=== PATIENT | female | born 1970 | race Caucasian/White ===

== ENCOUNTER 2016-10-08 22:07 | Emergency (ER) | payer BC ==
[~2016-10-08] VITALS: Ht 154.9 cm; Wt 73.8 kg
[~2016-10-08 22:07] MED LIST: MOTRIN PO; PERC5TAB12 PO
[2016-10-08 22:14] VITALS: BP 160/116; PULSE 89; RESP 16; TEMP 98.8; O2SAT 99
[2016-10-08] MEDS ORDERED: BP MEDICATION PO (22:23)
[2016-10-08 23:07] VITALS: BP 167/107
[2016-10-08] MEDS ORDERED: ZITHTAB PO (23:09)
--- NOTE | 2016-10-08 23:09 | PD ---
HPI Chief Complaint: ENT Complaint Time Seen by Provider: 23:03 Travel History International Travel<30 days: No Contact w/Intl Traveler<30days: No Traveled to known affect area: No History of Present Illness HPI 46-year-old female presents to the emergency department by private transportation for complaint of possible sinus infection. Patient has had sinus pressure with drainage, sore throat, mild epistaxis, and frontal headache 2 days. Patient states she's had sinus infections in the past. Patient also has high blood pressure but is been taking her blood pressure medication as prescribed. Patient is also been using [id number] NyQuil and Claritin-D however. Patient is not aware that these medications may have an adverse elevating effect on her blood pressure. Patient denies any sudden onset thunderclap or worst ever headache no visual disturbance no confusion no nausea no vomiting no neck pain no chest pain no palpitations no report of upper or lower extremity numbness tingling weakness or ataxia gait. Patient denies other concerns or complaints. Patient rates sinus pressure and throat pain 8/ 10 in intensity. Patient reports that she has recently had her pressure medication changed from a high dose beta salazar to a new medication that she takes as a 5 mg tablet but she does not know the name of the medication. PFSH Past Medical History Narrative Medical Hypertension, sinusitis, ovarian cysts, kidney stone, left ureteral stent, tubal ligation; occasional alcohol use no tobacco use; nursing notes reviewed Hx Anticoagulant Therapy: Yes (81MG ASA) Blood Disorders: No Heart Rhythm Problems: No Cancer: No Cardiovascular Problems: No High Cholesterol: No Chest Pain: No Congestive Heart Failure: No Diabetes: No Diminished Hearing: No Endocrine: No Genitourinary: Yes (KIDNEY STONES) Hepatitis: No Hiatal Hernia: No Hypertension: Yes Immune Disorder: No Kidney Stones: Yes Musculoskeletal: No Neurologic: No Psychiatric: No Reproductive: No Respiratory: No Immunizations Current: Yes Thyroid Disease: No Tetanus Vaccination: Unknown Influenza Vaccination: No ?: Not LMP: 10/01/16 : 3 Para: 3 Ovarian Cysts: Yes Tubal Ligation: Yes Past Surgical History AICD: No Body Medical Devices: l side stent Genitourinary Surgery: Yes (l side stent) Joint Replacement: No Pacemaker: No Other Surgery: Yes (OVARIAN CYSTE; TUBES TIED) Social History Alcohol Use: Yes (OCC) Tobacco Use: No Substance Use: No Allergies-Medications (Allergen,Severity, Reaction): Coded Allergies: No Known Allergies (Unverified , 10/08/16) Reported Meds & Prescriptions Reported Meds & Active Scripts Active Clonidine (Clonidine HCl) 0.1 Mg Tab 0.1 Mg PO Q12HR PRN Zithromax Z-Cheikh (Azithromycin) 250 Mg Dspk 250 Mg PO DIRECTED 500 MG (2 tabs) day 1, then 1 tab days 2-5. Reported [Bp Medication] 5 Mg PO DAILY Review of Systems Except as stated in HPI: all other systems reviewed are Neg General / Constitutional: No: Fever, Chills Eyes: No: Visual changes HENT: Positive: Headaches, Sore Throat, Nosebleed, Earache, No: Neck Stiffness Cardiovascular: No: Chest Pain or Discomfort Respiratory: No: Cough, Shortness of Breath, Wheezing (scant) Gastrointestinal: No: Nausea, Vomiting, Abdominal Pain Genitourinary: No: Flank Pain Musculoskeletal: No: Myalgias, Arthralgias Skin: No Rash Neurologic: No: Weakness Psychiatric: No: Anxiety Endocrine: No: Polyuria Hematologic/Lymphatic: No: Lymph Node Enlargement Physical Exam Narrative GENERAL: Well-developed well-nourished female in no acute distress no respiratory distress SKIN: Warm and dry. HEAD: Normocephalic. EYES: No scleral icterus. No injection or drainage. ENT: Mucous members moist airway is patent sinuses tender to percussion no active epistaxis or posterior pharyngeal blood sugar: Tympanic membranes no redness dullness loss of landmarks or perforation NECK: Supple, trachea midline. No JVD or lymphadenopathy. No meningismus no nuchal rigidity. CARDIOVASCULAR: Regular rate and rhythm without murmurs, gallops, or rubs. RESPIRATORY: Breath sounds equal bilaterally. No accessory muscle use. GASTROINTESTINAL: Abdomen soft, non-tender, nondistended. MUSCULOSKELETAL: No cyanosis, or edema. Radial and dorsalis pedis pulses 2+ to palpation. BACK: Nontender without obvious deformity. No CVA tenderness. Data Data Last Documented VS Vital Signs Date Time Temp Pulse Resp B/P Pulse Ox O2 Delivery O2 Flow Rate FiO2 10/09/16 00:30 136/96 10/09/16 00:16 18 10/08/16 22:14 98.8 89 99 Orders Acetaminophen (Tylenol) (10/08/16 23:15) Clonidine (Catapres) (10/08/16 23:45) [facility] Medical Decision Making Medical Screen Exam Complete: Yes Emergency Medical Condition: Yes Medical Record Reviewed: Yes Differential Diagnosis Viral syndrome, rhinosinusitis, acute bacterial sinusitis, pharyngitis, poorly controlled hypertension, adverse medication reaction Narrative Course Patient with recurrent episodes of sinusitis with recurrent similar symptoms noted to have hypertension most likely related to adverse response to over-the- counter NyQuil and Claritin-D elevated blood pressure. Repeat blood pressure remains elevated therefore patient administered clonidine 0.1 mg by mouth At 12:30 AM blood pressure has decreased to 138/96; patient stable for outpatient management and follow-up with her primary care provider and is encouraged to complete course of antibiotic as prescribed Diagnosis Primary Impression: Sinusitis, acute Qualified Code: J01.11 - Acute recurrent frontal sinusitis Additional Impression: Hypertension Qualified Code: I10 - Essential hypertension Referrals: Primary Care Physician call for appointment Patient Instructions: General Instructions Additional Instructions: Increase fluid hydration Take blood pressure medication as prescribed Follow-up with primary care provider regarding blood pressure management Avoid use of [id number]-hcg-[id number] combination medication such as NyQuil or Claritin- D May use acetaminophen/Tylenol every 4 hours as needed for minor pain or for fever 100.4F or greater May use ibuprofen/Advil/Motrin every 6-8 hours as needed for fever 100.4F or greater or for pain associated with inflammation May use saline nasal spray as needed for nasal congestion and sinus drainage If needed for localized nasal decongestant use May use Afrin original nasal spray 1 spray to each nostril no more often than twice a day and for no longer than 2-3 days do not use with tablet form of any decongestants Return to the emergency department for any concerns or change in condition Med/Other Pt SpecificInfo: Prescription(s) given Scripts Clonidine 0.1 Mg Tab0.1 Mg PO Q12HR PRN (SBP>160, DBP>90) #6 TAB Ref 0 Prov:Maxine Enamorado MD 10/09/16 Azithromycin (Zithromax Z-Cheikh)250 Mg [id number] Mg PO DIRECTED #1 DSPK Ref 0 500 MG (2 tabs) day 1, then 1 tab days 2-5. Prov:Maxine Enamorado MD 10/08/16 Disposition: 01 DISCHARGE HOME Condition: Stable Maxine Enamorado MD Oct 08, 2016 23:09
[2016-10-08] MEDS ORDERED: ACETAMINOPHEN 325 MG TAB PO ONE (23:15)
[2016-10-08 23:45] VITALS: BP 160/110
[2016-10-08] MEDS ORDERED: cloNIDine HCL 0.1 MG TAB PO ONE (23:45)
[2016-10-09 00:16] VITALS: RESP 18
[2016-10-09 00:26] VITALS: BP 154/104
[2016-10-09 00:30] VITALS: BP 136/96
[2016-10-09] MEDS ORDERED: CLON0.1T PO (00:31)
== END 2016-10-09 00:49 | disposition home or self-care (01) ==
LOC: PHEFT 22:07
DX: J01.90 Acute sinusitis, unspecified (principal); I10 Essential (primary) hypertension; Z87.442 Personal history of urinary calculi; Z79.82 Long term (current) use of aspirin
CPT/HCPCS: 99283

== ENCOUNTER 2017-01-04 19:45 | Emergency (ER) | payer BC ==
[~2017-01-04] VITALS: Ht 154.9 cm; Wt 75.2 kg
[~2017-01-04 19:45] MED LIST changes: +BP MEDICATION PO; +CLON0.1T PO; -MOTRIN PO; -PERC5TAB12 PO; +ZITHTAB PO
[2017-01-04 19:57] VITALS: BP 154/103; PULSE 83; RESP 20; TEMP 97.7; O2SAT 99
[2017-01-04] MEDS ORDERED: AMLO5TAB2 PO (20:23)
[2017-01-04 20:53] LABS: BLOOD, URINE NEG (NEG); GLUCOSE,URINE NEG (NEG); KETONE, URINE NEG (NEG); NITRITE,URINE NEG (NEG)
[2017-01-04 21:03] LABS: URINE COLOR YELLOW (YELLW/STRAW)
[2017-01-04 21:04] LABS: COMMENT (UR) CULT NOT INDICATED; CULTURE IF INDICATED CULT NOT INDICATED; SQUAMOUS EPITHELIAL CELL URINE 0-5 /hpf (0-5)
--- NOTE | 2017-01-04 21:30 | PD ---
HPI Chief Complaint: Flank/Kidney Pain Time Seen by Provider: 21:30 Travel History International Travel<30 days: No Contact w/Intl Traveler<30days: No Traveled to known affect area: No History of Present Illness HPI 46-year-old female presents to the emergency department by private transportation for complaint of one week of low back pain that worsens with movement. Patient states she has difficulty finding a comfortable position. Patient states she's noted some urinary frequency. Patient denies hematuria. Patient has prior history of kidney stones and is concerned she may have recurrent kidney stone. Patient is also noted some referred pain to the lower extremities but denies any lower extremity numbness tingling weakness saddle anesthesia or bladder or bowel dysfunction. Patient also denies any known injury or strain. Patient denies any abdominal pain. Patient's had no fever or chills. Patient denies nausea or vomiting. Patient's had no recent respiratory illness. Patient has taken no medications as she was concerned that she was not sure which she should be taking or what she would be treating. Patient rates her low back pain 7/10 in intensity. PFSH Past Medical History Narrative Medical Kidney stones with stents, hypertension, ovarian cyst, tubal ligation; no tobacco use; nursing notes reviewed Hx Anticoagulant Therapy: Yes (ASA) Blood Disorders: No Heart Rhythm Problems: No Cancer: No Cardiovascular Problems: No High Cholesterol: No Chest Pain: No Congestive Heart Failure: No Diabetes: No Diminished Hearing: No Endocrine: No Genitourinary: Yes (KIDNEY STONES) Hepatitis: No Hiatal Hernia: No Hypertension: Yes Immune Disorder: No Kidney Stones: Yes Musculoskeletal: No Neurologic: No Psychiatric: No Reproductive: No Respiratory: No Immunizations Current: Yes Thyroid Disease: No Tetanus Vaccination: Unknown Influenza Vaccination: No ?: Not LMP: WEEK AGO : 3 Para: 3 Ovarian Cysts: Yes Tubal Ligation: Yes Past Surgical History AICD: No Body Medical Devices: l side stent Genitourinary Surgery: Yes (l side stent) Joint Replacement: No Pacemaker: No Other Surgery: Yes (OVARIAN CYSTE; TUBES TIED) Social History Alcohol Use: Yes (OCC) Tobacco Use: No Substance Use: No Allergies-Medications (Allergen,Severity, Reaction): Coded Allergies: No Known Allergies (Unverified , 01/04/17) Reported Meds & Prescriptions Reported Meds & Active Scripts Active Clonidine (Clonidine HCl) 0.1 Mg Tab 0.1 Mg PO Q12HR PRN Reported Amlodipine (Amlodipine Besylate) 5 Mg Tab 5 Mg PO DAILY Review of Systems Except as stated in HPI: all other systems reviewed are Neg General / Constitutional: No: Fever, Chills HENT: No: Congestion Cardiovascular: No: Chest Pain or Discomfort, Palpitations, Diaphoresis, Syncope, Dyspnea on exertion, Edema, Claudication Respiratory: No: Shortness of Breath Gastrointestinal: No: Nausea, Vomiting, Diarrhea, Abdominal Pain Genitourinary: Positive: Frequency, No: Urgency, Dysuria, Hematuria, Flank Pain, Discharge, Vaginal Bleeding Musculoskeletal: Positive: Myalgias, Arthralgias, Pain (low back), No: Limited ROM Skin: No Rash Neurologic: No: Weakness, Dizziness, Syncope, Focal Abnormalities, Coordination Problem, Paresthesia, Incontinence, Sensory Disturbance Psychiatric: No: Anxiety Hematologic/Lymphatic: No: Easy Bruising Physical Exam Narrative GENERAL: Well-developed well-nourished female in no acute distress no respiratory distress SKIN: Warm and dry. HEAD: Normocephalic. EYES: No scleral icterus. No injection or drainage. NECK: Supple, trachea midline. No JVD or lymphadenopathy. CARDIOVASCULAR: Regular rate and rhythm without murmurs, gallops, or rubs. RESPIRATORY: Breath sounds equal bilaterally. No accessory muscle use. GASTROINTESTINAL: Abdomen soft, non-tender, nondistended. MUSCULOSKELETAL: No cyanosis, or edema. BACK: Nontender without obvious deformity except for direct palpation of the lower lumbar spine and bilateral SI joints. No CVA tenderness. Negative straight leg raising. Bilateral DTRs 2+ and symmetric. Sensory exam intact. Motor strength 5 over 5. Data Data Last Documented VS Vital Signs Date Time Temp Pulse Resp B/P Pulse Ox O2 Delivery O2 Flow Rate FiO2 01/04/17 21:50 75 18 149/99 99 Room Air 01/04/17 19:57 97.7 Orders Urinalysis - C+S If Indicated (01/04/17 20:24) Ed Urine Pregnancytest Poc (01/04/17 20:24) Basic Metabolic Panel (Bmp) (01/04/17 20:59) Complete Blood Count With Diff (01/04/17 20:59) Magnesium (Mg) (01/04/17 20:59) Ketorolac Inj (Toradol Inj) (01/04/17 22:15) Labs Laboratory Tests Test 01/04/17 20:30 White Blood Count 9.1 TH/MM3 Red Blood Count 4.17 MIL/MM3 Hemoglobin 12.0 GM/DL Hematocrit 35.7 % Mean Corpuscular Volume 85.6 FL Mean Corpuscular Hemoglobin 28.9 PG Mean Corpuscular Hemoglobin 33.7 % Concent Red Cell Distribution Width 15.2 % Platelet Count 342 TH/MM3 Mean Platelet Volume 8.6 FL Neutrophils (%) (Auto) 62.3 % Lymphocytes (%) (Auto) 26.5 % Monocytes (%) (Auto) 7.6 % Eosinophils (%) (Auto) 2.8 % Basophils (%) (Auto) 0.8 % Neutrophils # (Auto) 5.6 TH/MM3 Lymphocytes # (Auto) 2.4 TH/MM3 Monocytes # (Auto) 0.7 TH/MM3 Eosinophils # (Auto) 0.3 TH/MM3 Basophils # (Auto) 0.1 TH/MM3 CBC Comment DIFF FINAL Differential Comment Urine Color YELLOW Urine Turbidity CLEAR Urine pH 6.0 Urine Specific Posey 1.010 Urine Protein NEG mg/dL Urine Glucose (UA) NEG mg/dL Urine Ketones NEG mg/dL Urine Occult Blood NEG Urine Nitrite NEG Urine Bilirubin NEG Urine Leukocyte Esterase NEG Urine Squamous Epithelial 0-5 /hpf Cells Microscopic Urinalysis Comment CULT NOT INDICATED Sodium Level 142 MEQ/L Potassium Level 3.4 MEQ/L Chloride Level 105 MEQ/L Carbon Dioxide Level 28.0 MEQ/L Anion Gap 9 MEQ/L Blood Urea Nitrogen 11 MG/DL Creatinine 0.83 MG/DL Estimat Glomerular Filtration 74 ML/MIN Rate Random Glucose 82 MG/DL Calcium Level 9.7 MG/DL Magnesium Level 2.3 MG/DL [facility] Medical Decision Making Medical Screen Exam Complete: Yes Emergency Medical Condition: Yes Medical Record Reviewed: Yes Interpretation(s) CBC & BMP Diagram 01/04/17 20:30 Vital Signs Date Time Temp Pulse Resp B/P Pulse Ox O2 Delivery O2 Flow Rate FiO2 01/04/17 21:50 75 18 149/99 99 Room Air 01/04/17 19:57 97.7 83 20 154/103 99 Differential Diagnosis Back pain, degenerative disc disease, lumbar strain, renal colic, UTI, renal insufficiency, dehydration Narrative Course Specimens collected and sent for resulting urinalysis normal CBC is automated differential normal basic metabolic panel values normal except for mild hypokalemia 3.4; no indication for CT abdomen and pelvis as no findings to support at this time renal colic/kidney stone or renal infection/UTI. Patient given a dose of Toradol for musculoskeletal pain and anti-inflammatory response. Patient is otherwise stable for outpatient management and follow-up with her primary care provider. Patient encouraged to increase fluid hydration take as needed as tolerated [id number] ibuprofen/Motrin/Advil per package directions and provided prescription for muscle relaxant. Diagnosis Primary Impression: Back pain Additional Impression: Hypertension Referrals: Primary Care Physician call for appointment Patient Instructions: General Instructions Additional Instructions: Increase fluid hydration Take acetaminophen/Tylenol as needed for fever 100.4F or greater Take ibuprofen/Advil/Motrin 600 mg as often as every 6 hours for pain associated with inflammation or for fever 100.4F or greater Use muscle relaxant as prescribed as needed for muscle spasm May use as needed ice intermittently for the next 12-24 hours or moist heat for comfort purposes Follow-up with primary care provider Return to the emergency department for any concerns or change in condition Med/Other Pt SpecificInfo: Prescription(s) given Scripts Methocarbamol (Robaxin)750 Mg Nfx110 Mg PO Q6HR ALT NEB #12 TAB Ref 0 Prov:Maxine Enamorado MD 01/04/17 Disposition: 01 DISCHARGE HOME Condition: Stable Maxine Enamorado MD Jan 04, 2017 21:30
[2017-01-04 21:35] LABS: AUTOMATED NEUTROPHIL # 5.6 TH/MM3 (1.8-7.7); BASOPHIL # 0.1 TH/MM3 (0-0.2); BASOPHIL % 0.8 % (0.0-2.0); EOSINOPHIL # 0.3 TH/MM3 (0-0.4); EOSINOPHIL % 2.8 % (0.0-4.0); HEMATOCRIT 35.7 % (35.0-46.0); HEMO FLAGS DIFF FINAL; LYMPH % 26.5 % (9.0-44.0); LYMPHOCYTE # 2.4 TH/MM3 (1.0-4.8); MEAN CELL VOLUME 85.6 FL (80.0-100.0); MEAN CORPUSCULAR HEMOGLOBIN 28.9 PG (27.0-34.0); MEAN CORPUSCULAR HGB CONC 33.7 % (32.0-36.0); MONO % 7.6 % (0.0-8.0); NEUT % 62.3 % (16.0-70.0); PLATELET COUNT 342 TH/MM3 (150-450); RED BLOOD COUNT 4.17 MIL/MM3 (4.00-5.30); RED CELL DISTRIBUTION WIDTH 15.2 % (11.6-17.2); WHITE BLOOD COUNT 9.1 TH/MM3 (4.0-11.0)
[2017-01-04 21:50] VITALS: BP 149/99; PULSE 75; RESP 18; O2SAT 99
[2017-01-04 21:57] LABS: POTASSIUM 3.4 MEQ/L (3.5-5.1)
[2017-01-04 22:00] LABS: MAGNESIUM 2.3 MG/DL (1.5-2.5)
[2017-01-04] MEDS ORDERED: ROBA750T PO (22:08)
[2017-01-04] MEDS ORDERED: KETOROLAC TROMETHAMINE 30 MG/ML (IVP) VIAL IV PUSH ONE (22:15)
[2017-01-04 22:23] VITALS: BP 140/96
== END 2017-01-04 22:31 | disposition home or self-care (01) ==
LOC: PHED 19:45
DX: M54.5 Low back pain (principal); I10 Essential (primary) hypertension; Z87.442 Personal history of urinary calculi
CPT/HCPCS: 80048; 81001; 83735; 84703; 85025; 96374; 99284; J1885

== ENCOUNTER 2017-07-17 22:01 | Emergency (ER) | payer BC ==
[~2017-07-17] VITALS: Ht 154.9 cm; Wt 69.8 kg
[~2017-07-17 22:01] MED LIST changes: +AMLO5TAB2 PO; -BP MEDICATION PO; +ROBA750T PO; -ZITHTAB PO
[2017-07-17 22:05] VITALS: BP 176/93; PULSE 85; RESP 18; TEMP 97.8; O2SAT 100
[2017-07-17 22:30] VITALS: BP 178/104; PULSE 82; RESP 18; O2SAT 99
[2017-07-17] MEDS ORDERED: MORPHINE SULFATE 2 MG/ML INJ IV PUSH ONE (22:45)
[2017-07-17] MEDS ORDERED: ASPIRIN 81 MG CHEW TAB PO ONE (22:45)
[2017-07-17] MEDS ORDERED: SODIUM CHLORIDE 0.9% FLUSH 10 ML FLUSH IVF PRN (22:45)
--- NOTE | 2017-07-17 22:45 | PD ---
HPI Chief Complaint: Chest Pain Time Seen by Provider: 22:28 Travel History International Travel<30 days: No Contact w/Intl Traveler<30days: No Traveled to known affect area: No History of Present Illness HPI This is a 46-year-old female who presents to the emergency department with 2 days of left-sided chest pain, intermittent, moderate severity, constant for the past 3 hours, severe, associated with some shortness of breath. She says it does get worse when she takes deep breaths. She says it radiates to her left back. She's never had pain like this before. She does have a history of hypertension. Her mother has coronary artery disease and has peripheral arterial disease. She's not sure how old she was when this started. The patient did have a cholecystectomy 3 weeks ago and for 1 week she didn't get out of bed much. She denies any calf swelling. PFSH Past Medical History Hx Anticoagulant Therapy: Yes (ASA) Blood Disorders: No Heart Rhythm Problems: No Cancer: No Cardiovascular Problems: No High Cholesterol: No Chest Pain: No Congestive Heart Failure: No Diabetes: No Diminished Hearing: No Endocrine: No Gastrointestinal Disorders: No Genitourinary: Yes (KIDNEY STONES) Hepatitis: No Hiatal Hernia: No Hypertension: Yes Immune Disorder: No Implanted Vascular Access Dvce: No Kidney Stones: Yes Musculoskeletal: No Neurologic: No Psychiatric: No Reproductive: No Respiratory: No Immunizations Current: Yes Thyroid Disease: No Tetanus Vaccination: < 5 Years Influenza Vaccination: Yes ?: Not LMP: 1-2-18 : 3 Para: 3 Ovarian Cysts: Yes Tubal Ligation: Yes Past Surgical History AICD: No Body Medical Devices: l side stent Genitourinary Surgery: Yes (l side stent) Joint Replacement: No Pacemaker: No Other Surgery: Yes (OVARIAN CYSTE; TUBES TIED) Social History Alcohol Use: Yes (OCC) Tobacco Use: No Substance Use: No Allergies-Medications (Allergen,Severity, Reaction): Coded Allergies: No Known Allergies (Unverified Adverse Reaction, Unknown, 07/17/17) Reported Meds & Prescriptions Reported Meds & Active Scripts Active Ibuprofen 600 Mg Tab 600 Mg PO TID Robaxin (Methocarbamol) 750 Mg Tab 750 Mg PO Q6HR ALT NEB Clonidine (Clonidine HCl) 0.1 Mg Tab 0.1 Mg PO Q12HR PRN Reported Amlodipine (Amlodipine Besylate) 5 Mg Tab 5 Mg PO DAILY Review of Systems Except as stated in HPI: all other systems reviewed are Neg Physical Exam Narrative GENERAL:Well appearing, no acute distress SKIN: Focused skin assessment warm and dry. No rash. HEAD: Atraumatic. Normocephalic. EYES: Pupils equal and round. No injection or drainage. ENT: Moist mucous membranes NECK: Trachea midline. CARDIOVASCULAR: Regular rate and rhythm. No murmur appreciated. RESPIRATORY: Clear to auscultation. Breath sounds equal bilaterally. GASTROINTESTINAL: Abdomen soft, non-tender, nondistended. MUSCULOSKELETAL: No obvious deformities. NEUROLOGICAL: Awake and alert. No obvious cranial nerve deficits. Moving all extremities. PSYCHIATRIC: Appropriate mood and affect; insight and judgment normal. Data Data Last Documented VS Vital Signs Date Time Temp Pulse Resp B/P (MAP) Pulse Ox O2 Delivery O2 Flow Rate FiO2 07/18/17 01:52 85 16 126/88 (101) 98 07/18/17 00:36 Room Air 07/17/17 22:05 97.8 Orders Orders Electrocardiogram (07/17/17 22:42) Complete Blood Count With Diff (07/17/17 22:42) Comprehensive Metabolic Panel (07/17/17 22:42) D-Dimer (07/17/17 22:42) Troponin I (07/17/17 22:42) Chest, Single Ap (07/17/17 22:42) Ecg Monitoring (07/17/17 22:42) Bilateral Bp Monitoring (07/17/17 22:42) Iv Access Insert/Monitor (07/17/17 22:42) Oximetry (07/17/17 22:42) Oxygen Administration (07/17/17 22:42) Aspirin Chew (Aspirin Chew) (07/17/17 22:45) Sodium Chloride 0.9% Flush (Ns Flush) (07/17/17 22:45) Morphine Inj (Morphine Inj) (07/17/17 22:45) Lipase (07/17/17 22:42) Ct Pulmonary Angiogram (07/18/17 00:05) Sodium Chloride 0.9% Flush (Ns Flush) (07/18/17 00:15) Iohexol 350 Inj (Omnipaque 350 Inj) (07/18/17 12:30) Ed Discharge Order (07/18/17 01:34) Ketorolac Inj (Toradol Inj) (07/18/17 01:45) Labs Laboratory Tests Test 07/17/17 23:01 White Blood Count 11.8 TH/MM3 Red Blood Count 4.23 MIL/MM3 Hemoglobin 12.2 GM/DL Hematocrit 37.7 % Mean Corpuscular Volume 89.1 FL Mean Corpuscular Hemoglobin 28.9 PG Mean Corpuscular Hemoglobin Concent 32.4 % Red Cell Distribution Width 13.0 % Platelet Count 369 TH/MM3 Mean Platelet Volume 8.9 FL Neutrophils (%) (Auto) 62.5 % Lymphocytes (%) (Auto) 26.9 % Monocytes (%) (Auto) 6.0 % Eosinophils (%) (Auto) 3.6 % Basophils (%) (Auto) 1.0 % Neutrophils # (Auto) 7.4 TH/MM3 Lymphocytes # (Auto) 3.2 TH/MM3 Monocytes # (Auto) 0.7 TH/MM3 Eosinophils # (Auto) 0.4 TH/MM3 Basophils # (Auto) 0.1 TH/MM3 CBC Comment AUTO DIFF Differential Comment AUTO DIFF CONFIRMED Platelet Estimate NORMAL Platelet Morphology Comment NORMAL Red Cell Morphology Comment NORMAL D-Dimer Quantitative (PE/DVT) 0.75 MG/L FEU Blood Urea Nitrogen 13 MG/DL Creatinine 0.83 MG/DL Random Glucose 92 MG/DL Total Protein 7.6 GM/DL Albumin 3.7 GM/DL Calcium Level 9.1 MG/DL Alkaline Phosphatase 82 U/L Aspartate Amino Transf (AST/SGOT) 12 U/L Alanine Aminotransferase (ALT/SGPT) 20 U/L Total Bilirubin 0.4 MG/DL Sodium Level 139 MEQ/L Potassium Level 3.4 MEQ/L Chloride Level 104 MEQ/L Carbon Dioxide Level 24.9 MEQ/L Anion Gap 10 MEQ/L Estimat Glomerular Filtration Rate 74 ML/MIN Troponin I LESS THAN 0.02 NG/ML Lipase 163 U/L MDM Medical Decision Making Medical Screen Exam Complete: Yes Emergency Medical Condition: Yes Interpretation(s) EKG: nsr, no st changes no leukocytosis labs are reassuring Differential Diagnosis Acute coronary syndrome, pulmonary embolism, pancreatitis, pericarditis Narrative Course This is a 46-year-old female who presents to the emergency department with left- sided chest discomfort that started 3 hours prior to arrival. She has a history of hypertension and her mother has coronary artery disease although is also a smoker. She is placed on a monitor and an IV was established. EKG is nonischemic. Labs will be obtained including a d-dimer given the patient's recent history of cholecystectomy. Patient will be signed out to oncoming provider for disposition. Scripts Ibuprofen (Ibuprofen) 600 Mg Tab 600 MG PO TID, #44 TAB 0 Refills Prov: Jac Armstrong MD 07/18/17 Jasmyne Heller MD Jul 17, 2017 22:45
--- NOTE | 2017-07-17 22:57 | RADRPT ---
EXAM DATE/TIME: 07/17/2017 22:46 [facility] COMPARISON: CHEST SINGLE AP, March 11, 2016, 11:31. INDICATIONS : Left sided chest pain. MEDICAL HISTORY : Hypertension. SURGICAL HISTORY : None. ENCOUNTER: Initial ACUITY: 1 day PAIN SCORE: 5/10 LOCATION: Left chest FINDINGS: A single view of the chest demonstrates the lungs to be symmetrically aerated without evidence of mas s, infiltrate or effusion. The cardiomediastinal contours are unremarkable. Osseous structures are intact. CONCLUSION: No acute disease. Vinny Esparza MD on July 17, 2017 at 22:55 Board Certified Radiologist. This report was verified electronically.
[2017-07-17 23:07] VITALS: BP 155/97; PULSE 95; RESP 16; O2SAT 100
[2017-07-17 23:26] LABS: CHLORIDE 104 MEQ/L (98-107); SODIUM (NA) 139 MEQ/L (136-145)
[2017-07-17 23:29] LABS: ALBUMIN 3.7 GM/DL (3.4-5.0); BICARBONATE 24.9 MEQ/L (21.0-32.0); CALCIUM 9.1 MG/DL (8.5-10.1); LIPASE 163 U/L (73-393)
[2017-07-17 23:30] LABS: BLOOD UREA NITROGEN 13 MG/DL (7-18); GLUCOSE,RANDOM 92 MG/DL (74-106)
[2017-07-17 23:32] LABS: ALT (GPT) 20 U/L (10-53); AST (GOT) 12 U/L (15-37); CREATININE 0.83 MG/DL (0.50-1.00); GLOMERULAR FILTRATION RATE 74 ML/MIN (>89)
[2017-07-17 23:34] LABS: TOTAL BILIRUBIN ADULT 0.4 MG/DL (0.2-1.0); TOTAL PROTEIN 7.6 GM/DL (6.4-8.2)
[2017-07-17 23:35] LABS: ALKALINE PHOSPHATASE 82 U/L (45-117)
[2017-07-17 23:37] LABS: TROPONIN I LESS THAN 0.02 NG/ML (0.02-0.05)
[2017-07-17 23:46] LABS: AUTOMATED NEUTROPHIL # 7.4 TH/MM3 (1.8-7.7); BASOPHIL # 0.1 TH/MM3 (0-0.2); EOSINOPHIL # 0.4 TH/MM3 (0-0.4); EOSINOPHIL % 3.6 % (0.0-4.0); HEMATOCRIT 37.7 % (35.0-46.0); HEMOGLOBIN 12.2 GM/DL (11.6-15.3); LYMPH % 26.9 % (9.0-44.0); LYMPHOCYTE # 3.2 TH/MM3 (1.0-4.8); MEAN CELL VOLUME 89.1 FL (80.0-100.0); MEAN CORPUSCULAR HEMOGLOBIN 28.9 PG (27.0-34.0); MEAN CORPUSCULAR HGB CONC 32.4 % (32.0-36.0); MEAN PLATELET VOLUME 8.9 FL (7.0-11.0); MONOCYTE # 0.7 TH/MM3 (0-0.9); NEUT % 62.5 % (16.0-70.0); PLATELET COUNT 369 TH/MM3 (150-450); RED BLOOD COUNT 4.23 MIL/MM3 (4.00-5.30); WHITE BLOOD COUNT 11.8 TH/MM3 (4.0-11.0)
[2017-07-18] MEDS ORDERED: SODIUM CHLORIDE 0.9% FLUSH 10 ML FLUSH IVF PRN (00:15)
[2017-07-18 00:36] VITALS: BP 160/95; PULSE 98; RESP 16; O2SAT 100
--- NOTE | 2017-07-18 01:24 | RADRPT ---
EXAM DATE/TIME: 07/18/2017 00:22 [facility] COMPARISON: No previous studies available for comparison. INDICATIONS : Left chest pain. IV CONTRAST: 75 cc Omnipaque 350 (iohexol) IV RADIATION DOSE: 8.73 CTDIvol (mGy) MEDICAL HISTORY : Hypertension. SURGICAL HISTORY : Tubal ligation. Cholecystectomy. ENCOUNTER: Initial ACUITY: 2 days PAIN SCALE: 5/10 LOCATION: Left chest TECHNIQUE: Volumetric scanning of the chest was performed using a pulmonary embolism protocol MIP images were re constructed. Using automated exposure control and adjustment of the mA and/or kV according to patien t size, radiation dose was kept as low as reasonably achievable to obtain optimal diagnostic quality images. DICOM format image data is available electronically for review and comparison. Follow-up recommendations for detected pulmonary nodules are based at a minimum on nodule size and pa tient risk factors according to Fleischner Society Guidelines. FINDINGS: Examination of the pulmonary vasculature demonstrates good filling of the main, lobar and segmental b ranches. There are no filling defects to suggest pulmonary embolism. Multiplanar reconstructions are also unremarkable. Examination of the lung cabrales demonstrates no evidence of pulmonary nodule. No pleural fluid is iden tified. Examination of the mediastinum demonstrates no abnormally enlarged lymph nodes by CT criteria . No axillary or hilar abnormalities are identified. Coronary artery calcifications are present. The visualized upper abdomen demonstrates no abnormality. CONCLUSION: 1. No evidence of pulmonary embolism. Ricardo Julian MD on July 18, 2017 at 1:21 Board Certified Radiologist. This report was verified electronically.
[2017-07-18] MEDS ORDERED: IBUP-232 PO (01:32)
--- NOTE | 2017-07-18 01:34 | PD ---
Physical Exam Time Seen by Provider: 01:[address] pulmonary angiogram shows no evidence of pulmonary embolism. It also showed no other acute abnormality in the lungs. Data Data Last Documented VS Vital Signs Date Time Temp Pulse Resp B/P (MAP) Pulse Ox O2 Delivery O2 Flow Rate FiO2 07/18/17 00:36 98 16 160/95 (116) 100 Room Air 07/17/17 22:05 97.8 Orders Orders Electrocardiogram (07/17/17 22:42) Complete Blood Count With Diff (07/17/17 22:42) Comprehensive Metabolic Panel (07/17/17 22:42) D-Dimer (07/17/17 22:42) Troponin I (07/17/17 22:42) Chest, Single Ap (07/17/17 22:42) Ecg Monitoring (07/17/17 22:42) Bilateral Bp Monitoring (07/17/17 22:42) Iv Access Insert/Monitor (07/17/17 22:42) Oximetry (07/17/17 22:42) Oxygen Administration (07/17/17 22:42) Aspirin Chew (Aspirin Chew) (07/17/17 22:45) Sodium Chloride 0.9% Flush (Ns Flush) (07/17/17 22:45) Morphine Inj (Morphine Inj) (07/17/17 22:45) Lipase (07/17/17 22:42) Ct Pulmonary Angiogram (07/18/17 00:05) Sodium Chloride 0.9% Flush (Ns Flush) (07/18/17 00:15) Iohexol 350 Inj (Omnipaque 350 Inj) (07/18/17 12:30) Labs Laboratory Tests Test 07/17/17 23:01 White Blood Count 11.8 TH/MM3 Red Blood Count 4.23 MIL/MM3 Hemoglobin 12.2 GM/DL Hematocrit 37.7 % Mean Corpuscular Volume 89.1 FL Mean Corpuscular Hemoglobin 28.9 PG Mean Corpuscular Hemoglobin Concent 32.4 % Red Cell Distribution Width 13.0 % Platelet Count 369 TH/MM3 Mean Platelet Volume 8.9 FL Neutrophils (%) (Auto) 62.5 % Lymphocytes (%) (Auto) 26.9 % Monocytes (%) (Auto) 6.0 % Eosinophils (%) (Auto) 3.6 % Basophils (%) (Auto) 1.0 % Neutrophils # (Auto) 7.4 TH/MM3 Lymphocytes # (Auto) 3.2 TH/MM3 Monocytes # (Auto) 0.7 TH/MM3 Eosinophils # (Auto) 0.4 TH/MM3 Basophils # (Auto) 0.1 TH/MM3 CBC Comment AUTO DIFF Differential Comment AUTO DIFF CONFIRMED Platelet Estimate NORMAL Platelet Morphology Comment NORMAL Red Cell Morphology Comment NORMAL D-Dimer Quantitative (PE/DVT) 0.75 MG/L FEU Blood Urea Nitrogen 13 MG/DL Creatinine 0.83 MG/DL Random Glucose 92 MG/DL Total Protein 7.6 GM/DL Albumin 3.7 GM/DL Calcium Level 9.1 MG/DL Alkaline Phosphatase 82 U/L Aspartate Amino Transf (AST/SGOT) 12 U/L Alanine Aminotransferase (ALT/SGPT) 20 U/L Total Bilirubin 0.4 MG/DL Sodium Level 139 MEQ/L Potassium Level 3.4 MEQ/L Chloride Level 104 MEQ/L Carbon Dioxide Level 24.9 MEQ/L Anion Gap 10 MEQ/L Estimat Glomerular Filtration Rate 74 ML/MIN Troponin I LESS THAN 0.02 NG/ML Lipase 163 U/L MDM Medical Record Reviewed: Yes Supervised Visit with MAXI: No Differential Diagnosis Atypical chest pain, acute coronary syndrome, pulmonary embolus, pneumonia, pleuritic pain Narrative Course There is no evidence of acute coronary syndrome, pulmonary embolus, pneumonia on the imaging/laboratory testing. The patient appears to have pleuritic chest pain. She is not tender externally and chest wall pain is not likely. Diagnosis Primary Impression: Pleuritic chest pain Additional Instruction: As we discussed, take the Motrin 3 times daily and this leads to high levels of any inflammatory medication and the blood. Usually after 3 or 4 days this resolves the problem. Follow-up this week with your primary care physician. Med/Other Pt SpecificInfo: Prescription(s) given Scripts Ibuprofen (Ibuprofen) 600 Mg Tab 600 MG PO TID, #44 TAB 0 Refills Prov: Jac Armstrong MD 07/18/17 Disposition: 01 DISCHARGE HOME Condition: Stable Jac Armstrong MD Jul 18, 2017 01:33
[2017-07-18] MEDS ORDERED: KETOROLAC TROMETHAMINE 60 MG/2 ML (IM) VIAL IVP ONE (01:45)
[2017-07-18 01:52] VITALS: BP 126/88
[2017-07-18] MEDS ORDERED: IOHEXOL 350 MG/ML 10 ML VIAL (for RAD DIAG) IVCONTRAST ONE (12:30)
--- NOTE | 2017-07-18 18:54 | EKG ---
Date Performed: 07/17/2017 Time Performed: 22:52:55 PTAGE: 46 years EKG: Sinus rhythm POSSIBLE LEFT ATRIAL ENLARGEMENT BORDERLINE LEFT AXIS DEVIATION BORDERLINE ECG PREVIOUS TRACING : 03/11/2016 11.26 Compared to prior tracing no significant change DOCTOR: Mariama Peraza Interpretating Date/Time 07/18/2017 18:53:28
== END 2017-07-18 02:05 | disposition home or self-care (01) ==
LOC: PHED 22:01
DX: R07.81 Pleurodynia (principal); I10 Essential (primary) hypertension; Z87.442 Personal history of urinary calculi
CPT/HCPCS: 71045; 71275; 80053; 83690; 84484; 85025; 85379; 93005; 96374; 96375; 99285; J1885; J2270; Q9967